=== PATIENT | female | born 1950 | race Caucasian/White ===

== ENCOUNTER → 2017-11-24 | Outpatient (CLI) | payer MEDICARE ==
[~2017-11-24] MED LIST: ASPI81TA94 PO; ATOR40TA24 PO; CAR3.125 PO; CLOP75TA PO; DIPH-543 PO; DOCU-202 PO; ENOX30DI5 SQ; FLUT10SP; FLUT16SP20 NS; FURO-47 PO; HYDR-385 PO; HYDR-4309 PO; LEVO100T95 PO; LEVO75TA73 PO; LISI-353 PO; LISI-374 PO; MELA3TAB31 PO; NIT4 SL; ONDA4TAB PO; PANT40TA65 PO; PARO-46 PO; POTA20TA10 PO; PRAV40TA78 PO; PROM-110 PO; ZOLP-360 PO; vit d
--- NOTE | 2017-11-27 08:47 | RADIOLOGY IMAGING REPORT ---
FACILITY: [facility] PATIENT NAME: LEONOR CARLSON : [id number] MR: [id number] V: [id number] EXAM DATE: ORDERING PHYSICIAN: PARAS DOTSON TECHNOLOGIST: Tamara Lozano EXAMINATION:TWO-DIMENSIONAL ECHOCARDIOGRAPH REASON:CAD 2D Measurements (normal values in centimeters) LV endLV endRV endVent.LV PostAorticLeftPercent DiastolicSystolicDiastolicSeptumWallRootAtriumShortening (3.5-5.7)(0.9-2.6)(0.6-1.1)(0.6-1.1)(2.0-3.7)(1.9-4.0)(25-35%) [id number]% STROKE VOLUME: 64ml ESTIMATED EJECTION FRACTION: 45% PARASTERNAL LONG AXIS: Left ventricular systolic function does appear to be mildly decreased. There is some generalized hypokinesis. The right ventricle appears to contract normally although the TAPSE is measured at the lower range of 1.4 indicating some decrease in right ventricular function. Color examination of the mitral valve revealed a trace to mild amount of mitral insufficiency. Color examination of the aortic valve revealed a trace of aortic insufficiency. Mitral valve appears to open normally. Chamber sizes also appear to be normal. PARASTERNAL SHORT AXIS: Left ventricular systolic function again appears to be decreased. There is generalized hypokinesis but more so along the interventricular septum. There may be some akinesis along the interventricular septum in this view. Color examination revealed a trace of pulmonic insufficiency & a trace of aortic insufficiency. Aortic valve is trileaflet in configuration. APICAL FOUR AND TWO CHAMBER: Left ventricular systolic function again appears to be mildly decreased. Generalized hypokinesis but there also appears to be an area of akinesis at the apex of the left ventricle. There is a mild amount of mitral insufficiency & a trace of aortic insufficiency. Aortic valve area & mitral valve area both measure within normal ranges at 2.5 & 3.4cm2 respectively. The left atrial & right atrial volumes are measured within normal ranges at 25 & 14ml/m2. The tricuspid regurgitation Vmax measured 2.1m/sec. Trace of tricuspid insufficiency is noted. SUBCOSTAL VIEW: No pericardial effusion was noted. No atrioseptal or ventriculoseptal defects were noted. Definity contrast was used. No thrombus was noted in the apex of the left ventricle. The apex is not akinetic but it is hypokinetic. Strain measurements do show decreased Strain along the basilar portion & the apical portions of the anterolateral wall. There is generalized decreased Strain throughout the left ventricle. Doppler examination of the mitral valve in diastole does reveal the A wave > E wave indicating decreased diastolic function. OVERALL IMPRESSION: 1. Decreased left ventricular ejection fraction of approximately 45% with a Grade 1/4 decrease in diastolic function indicating mild decrease in diastolic function. The right ventricle also has a decreased TAPSE indicating some decrease in right ventricular function. There does appear to be generalized hypokinesis more so along the apex of the left ventricle & along the anterolateral wall. Definity contrast was used. No true akinesis was noted. 2. A trileaflet aortic valve with no aortic stenosis & a trace of aortic insufficiency. 3. A trace of pulmonic & tricuspid insufficiency with estimated right ventricular systolic pressures within normal ranges at 21mm Hg. 4. A mild amount of mitral insufficiency with no mitral stenosis. Dictated by: Sharda Link M.D. on 11/24/2017 at 14:33 Transcribed by: KRISTEN on 11/24/2017 at 15:14 Approved by: Sharda Link M.D. on 11/27/2017 at 8:46 [facility]
== END ==
LOC: US 03:21
PROVIDERS: ATTEND Internal Medicine Cardiovascular Disease
DX: I50.30 Unspecified diastolic (congestive) heart failure (principal); Q21.0 Ventricular septal defect; I35.1 Nonrheumatic aortic (valve) insufficiency; I07.1 Rheumatic tricuspid insufficiency; I37.1 Nonrheumatic pulmonary valve insufficiency; I34.0 Nonrheumatic mitral (valve) insufficiency
CPT/HCPCS: 36415; 82040; 82247; 82310; 82374; 82435; 82465; 82565; 82947; 83718; 84075; 84132; 84155; 84295; 84450; 84460; 84478; 84520; 93306

== ENCOUNTER → 2017-12-12 | Outpatient (CLI) | payer MEDICARE | LOC: LAB 07:50 | PROVIDERS: ATTEND Internal Medicine Cardiovascular Disease | DX: I10 Essential (primary) hypertension (principal) | CPT/HCPCS: 36415; 82310; 82374; 82435; 82565; 82947; 84132; 84295; 84520 ==

== ENCOUNTER → 2017-12-12 | Outpatient (CLI) | payer MEDICARE ==
[2017-12-12 08:36] LABS: PLATELET COUNT, AUTOMATED 306 K/uL (150-450)
== END ==
LOC: LAB 07:46
PROVIDERS: ATTEND Nurse Practitioner Family
DX: E03.9 Hypothyroidism, unspecified (principal); I10 Essential (primary) hypertension; D64.9 Anemia, unspecified
CPT/HCPCS: 36415; 83540; 83550; 84443; 85025

== ENCOUNTER 2018-02-23 18:22 | Inpatient (IN) | payer MEDICARE ==
[~2018-02-23] VITALS: Ht 162.6 cm; Wt 68.0 kg
--- NOTE | 2018-02-23 18:47 | ER Report ---
History and Physical Time Seen By MD: 18:47 Hx. of Stated Complaint: BILAT ARM AND LEG WEAKNESS. REPORTS MOSTLY IN LEGS SINCE 0700. HPI/ROS CHIEF COMPLAINT: Leg weakness HISTORY OF PRESENT ILLNESS: 67-year-old female states she is unable to get out of her chair at home. Was brought in by her in by wheelchair. Patient' s complaining of overall general body weakness, especially leg weakness since this morning at 7 AM. She was able to get up normally from bed and she ambulated out into the garage, but upon returning she is able lift her legs up the steps to get back into the house. Patient notes no headache, no fever, no chills, no nausea no vomiting, no chest pain, no shortness of breath. Patient denies back pain. Patient denies visual changes, speech changes or numbness or tingling in any of her extremities. Patient notes some aching in her arms. REVIEW OF SYSTEMS: Respiratory: No cough, no dyspnea. Cardiovascular: No chest pain, no palpitations. Gastrointestinal: No vomiting, no abdominal pain. Musculoskeletal: No back pain. Allergies: Coded Allergies: No Known Drug Allergies (Unverified , 02/23/18) Home Meds Active Scripts Loperamide Hcl (LOPERAMIDE) 2 Mg Capsule, 2 MG PO BID, #60 CAPSULE Prov:ANIYAH OBREGON DO 02/26/18 Carvedilol (CARVEDILOL) 3.125 Mg Tab, 1.5625 MG PO BID, #60 TAB Prov:ANIYAH OBREGON DO 02/26/18 Potassium Chloride (POTASSIUM CHLORIDE) 20 Meq Tab.er.prt, 40 MEQ PO BIDBS, #60 TAB Prov:ANIYAH OBREGON DO 02/26/18 Reported Medications Nitroglycerin (NITROSTAT) 0.4 Mg Subl, 0.4 MG SL Q5MIN 01/07/14 Levothyroxine Sodium (SYNTHROID) 100 Mcg Tablet, 100 MCG PO QDAY 12/30/13 Clopidogrel Bisulfate (CLOPIDOGREL) 75 Mg Tablet, 1 TAB PO QDAY, TAB TAKE ONE TABLET BY MOUTH EVERY DAY 12/30/13 Aspirin (ASPIRIN) 81 Mg Tab.chew, 81 MG PO QDAY, TAB.CHEW TAKE 1 TABLET BY MOUTH EVERY DAY 12/30/13 Paroxetine Hcl (PAROXETINE HCL) 20 Mg Tablet, 20 MG PO DAILY 12/12/13 Lisinopril/Hydrochlorothiazide (LISINOPRIL-HCTZ 20-12.5 MG TAB) 1 Each Tablet, 1 EACH PO BID 12/12/13 Atorvastatin Calcium (LIPITOR) 40 Mg Tablet, 20 MG PO QDAY, TAB TAKE ONE TABLET BY MOUTH ONCE A DAY AT BED TIME 12/12/13 Discontinued Reported Medications Docusate Sodium (DOCUSATE SODIUM) 100 Mg Capsule, 100 MG PO, CAPSULE 01/07/14 Potassium Chloride (Potassium Chloride) 20 Meq Tablet.er, 40 MEQ PO DAILY 12/30/13 Furosemide (FUROSEMIDE) 40 Mg Tablet, 1 TAB PO DAILY TAKE ONE TABLET BY MOUTH EVERY 6 TO 8 HOURS 12/30/13 Carvedilol (CARVEDILOL) 3.125 Mg Tab, 3.125 MG PO BID, TAB TAKE 1 TABLET BY MOUTH TWICE A DAY 12/30/13 Hydrocodone Bit/Acetaminophen (HYDROCODON-ACETAMINOPHEN 5-325) 1 Each Tablet, 1 EACH PO Q4H 01/07/14 [vit d] No Conflict Check 01/07/14 Discontinued Scripts Hydrocodone Bit/Acetaminophen (NORCO 5-325 TABLET) 1 Each Tablet, 1 EACH PO 2- 3XD, #20 TAB Prov:MARCELLA LASSITER MD 09/27/16 Past Medical/Surgical History Coronary artery disease, hypothyroidism, hypertension, hyperlipidemia Reviewed Nurses Notes: Yes Old Medical Records Reviewed: Yes Hx Smoking: No Smoking Status: Former Smoker Exposure to Second Hand Smoke?: No Hx Substance Use Disorder: No Hx Alcohol Use: No Constitutional Vital Sign - Last 24 Hours 02/23/18 02/23/18 02/23/18 02/23/18 18:30 19:29 19:37 19:52 Temp 98.0 Pulse 67 75 69 Resp 18 B/P (MAP) 102/75 120/86 (97) Pulse Ox 95 95 94 O2 Delivery Room Air 02/23/18 02/23/18 02/23/18 02/23/18 20:07 20:10 20:25 20:40 Pulse 74 66 68 66 Pulse Ox 95 94 93 94 02/23/18 02/23/18 02/23/18 02/23/18 20:55 21:25 21:40 21:55 Pulse 66 67 76 67 Resp 13 38 7 Pulse Ox 96 96 96 94 02/23/18 02/23/18 02/23/18 02/23/18 22:00 22:15 22:30 22:45 Pulse 66 63 62 70 Resp 15 19 19 15 Pulse Ox 94 94 94 95 02/23/18 02/23/18 02/23/18 02/24/18 23:00 23:15 23:50 00:05 Pulse 69 72 67 Resp 10 19 Pulse Ox 96 91 97 94 02/24/18 00:20 Pulse 57 Pulse Ox 96 Physical Exam General Appearance: The patient is alert, has no immediate need for airway protection and no current signs of toxicity. Vital signs stable, afebrile, pulse ox normal, alert and oriented 3 HEENT: Pupils equal and round no injection. TMs normal, oropharynx without redness or exudate, mucous membranes are moist Respiratory: Chest is non tender, lungs are clear to auscultation. No wheezing or rails Cardiac: regular rate and rhythm Gastrointestinal: Abdomen is soft and non tender, no masses, bowel sounds normal. Musculoskeletal: Neck: Neck is supple and non tender. No JVD, no lymphadenopathy Extremities have full range of motion and are non tender. No edema Skin: No rashes or lesions. Neuro: Alert and oriented 3, cranial nerves II through XII intact motor 5/5 all groups, normal. Patient unable to lift her legs off the bed., Sensation intact 4 to light touch DIFFERENTIAL DIAGNOSIS: After history and physical exam differential diagnosis was considered for weakness including but not limited to electrolyte abnormality , depression, anxiety, CVA, spinal cord abnormality, and infectious causes. Medical Decision Making Data Points Result Diagram: 02/26/18 0525 02/26/18 0525 Laboratory Hematology Test 02/23/18 20:25 02/23/18 21:35 02/23/18 23:38 Prothrombin Time 12.9 seconds (12.0-14.4) Prothromb Time International Ratio 0.97 Activated Partial Thromboplast Time 32 seconds (23-35) B-Type Natriuretic Peptide 174 pg/ml (0-100) Urine Color Straw Urine Clarity Clear Urine pH 6.0 pH (4.8-9.5) Urine Specific [place] 1.005 Urine Protein Negative mg/dL (NEGATIVE) Urine Glucose (UA) Negative mg/dL (NEGATIVE) Urine Ketones Negative mg/dL (NEGATIVE) Urine Blood Negative (NEGATIVE) Urine Nitrite Negative (NEGATIVE) Urine Bilirubin Negative (NEGATIVE) Urine Urobilinogen Negative mg/dL (0.2-1.9) Urine Leukocyte Esterase Negative (NEGATIVE) Urine RBC 1 /HPF (0-2/HPF) Urine WBC 2 /HPF (0-5/HPF) Urine Squamous Epithelial Cells None /LPF (NONE-FEW) Urine Amorphous Crystals Few /HPF Urine Bacteria Negative /HPF (NONE-FEW) Urine Mucus None /HPF (NONE-FEW) Troponin I 0.054 ng/ml Chemistry Test 02/23/18 20:25 02/23/18 21:35 02/23/18 23:38 Prothrombin Time 12.9 seconds (12.0-14.4) Prothromb Time International Ratio 0.97 Activated Partial Thromboplast Time 32 seconds (23-35) B-Type Natriuretic Peptide 174 pg/ml (0-100) Urine Color Straw Urine Clarity Clear Urine pH 6.0 pH (4.8-9.5) Urine Specific [place] 1.005 Urine Protein Negative mg/dL (NEGATIVE) Urine Glucose (UA) Negative mg/dL (NEGATIVE) Urine Ketones Negative mg/dL (NEGATIVE) Urine Blood Negative (NEGATIVE) Urine Nitrite Negative (NEGATIVE) Urine Bilirubin Negative (NEGATIVE) Urine Urobilinogen Negative mg/dL (0.2-1.9) Urine Leukocyte Esterase Negative (NEGATIVE) Urine RBC 1 /HPF (0-2/HPF) Urine WBC 2 /HPF (0-5/HPF) Urine Squamous Epithelial Cells None /LPF (NONE-FEW) Urine Amorphous Crystals Few /HPF Urine Bacteria Negative /HPF (NONE-FEW) Urine Mucus None /HPF (NONE-FEW) Troponin I 0.054 ng/ml Coagulation Test 02/23/18 20:25 Prothrombin Time 12.9 seconds Prothromb Time International Ratio 0.97 Activated Partial Thromboplast Time 32 seconds Urinalysis Test 02/23/18 21:35 Urine Color Straw Urine Clarity Clear Urine pH 6.0 pH (4.8-9.5) Urine Specific [place] 1.005 Urine Protein Negative mg/dL (NEGATIVE) Urine Glucose (UA) Negative mg/dL (NEGATIVE) Urine Ketones Negative mg/dL (NEGATIVE) Urine Blood Negative (NEGATIVE) Urine Nitrite Negative (NEGATIVE) Urine Bilirubin Negative (NEGATIVE) Urine Urobilinogen Negative mg/dL (0.2-1.9) Urine Leukocyte Esterase Negative (NEGATIVE) Urine RBC 1 /HPF (0-2/HPF) Urine WBC 2 /HPF (0-5/HPF) Urine Squamous Epithelial Cells None /LPF (NONE-FEW) Urine Amorphous Crystals Few /HPF Urine Bacteria Negative /HPF (NONE-FEW) Urine Mucus None /HPF (NONE-FEW) EKG/Imaging EKG Interpretation 12 lead EK Rhythm: normal sinus rhythm [place]: Left axis deviation QRS: LVH with repolarization abnormality,? Old inferior ST depression ST segments: normal, comparison to previous EKG dated 01/18/17, no significant morphologic change ED Course/Re-evaluation Clinical Indication for ER IV: IV Access ED Course Patient was admitted to an examination room. H&P was done. The differential diagnoses was considered. On clinical examination. Patient has generalized weakness. She has some arm and leg aching. Diagnostic evaluation shows a normal EKG. Diagnostic studies show a low potassium of 1.7. Some mild dehydration. 02/24/2018 12:29:25 am Case was discussed Dr. Babatunde Waddell who accepts the patient for admission for replacement of her potassium Decision to Disposition Date: Feb 23, 2018 Decision to Disposition Time: 20:57 Depart Departure Latest Vital Signs Vital Signs Date Time Temp Pulse Resp B/P (MAP) Pulse Ox O2 Delivery O2 Flow Rate FiO2 02/24/18 00:20 57 96 02/23/18 23:15 19 02/23/18 19:29 120/86 (97) 02/23/18 18:30 98.0 Room Air Impression: Primary Impression: Hypokalemia Additional Impression: Leg weakness, bilateral Condition: Improved Disposition: Admitted from ER New Scripts Loperamide Hcl (LOPERAMIDE) 2 Mg Capsule 2 MG PO BID, #60 CAPSULE Prov: ANIYAH OBREGON DO 02/26/18 Carvedilol (CARVEDILOL) 3.125 Mg Tab 1.5625 MG PO BID, #60 TAB Prov: ANIYAH OBREGON DO 02/26/18 Potassium Chloride (POTASSIUM CHLORIDE) 20 Meq Tab.er.prt 40 MEQ PO BIDBS, #60 TAB Prov: ANIYAH OBREGON DO 02/26/18 Problem Qualifiers DONNELL HOOVER DO Feb 23, 2018 18:47
[2018-02-23 20:37] LABS: PLATELET COUNT, AUTOMATED 345 K/uL (150-450)
--- NOTE | 2018-02-23 20:44 | EKG ---
FACILITY: [facility] PATIENT NAME: LEONOR CARLSON : [id number] MR: [id number] V: [id number] EXAM DATE: ORDERING PHYSICIAN: DONNELL HOOVER TECHNOLOGIST: BALDEMAR Test Reason : BILAT ARM PAIN Blood Pressure : / mmHG Vent. Rate : 069 BPM Atrial Rate : 069 BPM P-R Int : 146 ms QRS Dur : 104 ms QT Int : 394 ms P-R-T Axes : 035 -51 135 degrees QTc Int : 422 ms Sinus rhythm Left axis deviation Left ventricular hypertrophy with repolarization abnormality Inferior infarct , age undetermined ST depression inferolateral leads with diffuse T wave flattening Abnormal ECG Confirmed by SURINDER BILL ([id number]) on 02/24/2018 5:47:45 AM Referred By: Confirmed By:SURINDER BILL
[2018-02-23 20:52] LABS: INR 0.97
--- NOTE | 2018-02-23 21:58 | RADIOLOGY IMAGING REPORT ---
FACILITY: [facility] PATIENT NAME: Marcia Byrne : 1950 MR: [id number] V: [id number] EXAM DATE: ORDERING PHYSICIAN: DONNELL HOOVER TECHNOLOGIST: Location: [facility] Patient: Marcia Byrne : 1950 Visit/Account:[id number] Date of Sevice: 02/23/2018 TWO VIEW CHEST 02/23/2018 8:53 PM. INDICATION: weakness COMPARISON: 01/07/2014. FINDINGS: Lungs are well-expanded. The lungs are clear. No pneumothorax or pleural effusion. Pulmo nary vasculature is unremarkable. Heart size is normal. Coronary artery stents. Aortic calcificati ons. Surgical clips over the right upper quadrant of the abdomen. IMPRESSION: No acute cardiopulmonary abnormality. Report Dictated By: Christos Snowden MD at 02/23/2018 9:53 PM Report E-Signed By: Christos Snowden MD at 02/23/2018 9:54 PM WSN:[id number]
[2018-02-23] MEDS ORDERED: POTASSIUM CHL 20 MEQ TABCR PO ONE (22:00)
[2018-02-24] MEDS ORDERED: KCL 2 MEQ/ML 20 MEQ/10 ML VIAL 20 MEQ in NS(*) 0.9% 1000 ML BAG 1,000 ML IV PRN (01:29)
[2018-02-24] MEDS ORDERED: MAGNESIUM SUL* 4 GM/100 ML BAG 100 ML IVPB ONE ×2 (01:30→03:30)
[2018-02-24] MEDS ORDERED: NS 0.9% 250 ML VISIV BAG IV PRN (01:30)
[2018-02-24] MEDS ORDERED: INFLUENZA VIRUS VAC 0.5 ML SYR IM ONLY ONE (01:30)
[2018-02-24] MEDS ORDERED: KCL (*) 20 MEQ/100 ML PREMIX 100 ML IV ONE ×3 (01:30→05:15)
[2018-02-24] MEDS ORDERED: LOPERAMIDE HCL 2 MG CAP PO ONE (01:35)
--- NOTE | 2018-02-24 01:52 | History & Physical ---
History of Present Illness Chief Complaint Weak History of Present Illness 67yo female with PMHx significant for CAD s/p PTCA with stenting, previous UT, embolic shower with ischemic gut, s/p partial colectomy, chronic diarrhea, pericarditis with tamponade, s/p pericardial window. She reports onset of aches in her shoulder and hip girdles starting late yesterday. This was associated with significant weakness in her upper and lower extremities to the point she was unable to ambulate or do much at all for herself. She did not have N/V/CP/ SOB associated with it. She has had her chronic diarrhea, which is unchanged. No fevers or chills. No urinary complaints. She was evaluated in the ER and found to be hypokalemic (1.7), hypomagnesemic (1.1), and hypocalcemic (7.7). She was recommended for admission. History Problems: (1) CAD (coronary artery disease) Status: Chronic (2) History of UT (myocardial infarction) Status: Chronic (3) S/P coronary artery stent placement Status: Chronic (4) Pericarditis Status: Resolved (5) Cardiac tamponade due to viral pericarditis Status: Resolved (6) Ischemic colon Status: Resolved (7) S/P partial colectomy Status: Chronic (8) Chronic diarrhea Status: Chronic (9) Hypothyroidism Status: Chronic Home Meds Reported Medications Nitroglycerin (NITROSTAT) 0.4 Mg Subl, 0.4 MG SL Q5MIN 01/07/14 Docusate Sodium (DOCUSATE SODIUM) 100 Mg Capsule, 100 MG PO, CAPSULE 01/07/14 Potassium Chloride (Potassium Chloride) 20 Meq Tablet.er, 40 MEQ PO DAILY 12/30/13 Levothyroxine Sodium (SYNTHROID) 100 Mcg Tablet, 100 MCG PO QDAY 12/30/13 Furosemide (FUROSEMIDE) 40 Mg Tablet, 1 TAB PO DAILY TAKE ONE TABLET BY MOUTH EVERY 6 TO 8 HOURS 12/30/13 Clopidogrel Bisulfate (CLOPIDOGREL) 75 Mg Tablet, 1 TAB PO QDAY, TAB TAKE ONE TABLET BY MOUTH EVERY DAY 12/30/13 Carvedilol (CARVEDILOL) 3.125 Mg Tab, 3.125 MG PO BID, TAB TAKE 1 TABLET BY MOUTH TWICE A DAY 12/30/13 Aspirin (ASPIRIN) 81 Mg Tab.chew, 81 MG PO QDAY, TAB.CHEW TAKE 1 TABLET BY MOUTH EVERY DAY 12/30/13 Paroxetine Hcl (PAROXETINE HCL) 20 Mg Tablet, 20 MG PO DAILY 12/12/13 Lisinopril/Hydrochlorothiazide (LISINOPRIL-HCTZ 20-12.5 MG TAB) 1 Each Tablet, 1 EACH PO BID 12/12/13 Levothyroxine Sodium (LEVOTHYROXINE SODIUM) 75 Mcg Tablet, 75 MCG PO QDAY 12/12/13 Atorvastatin Calcium (LIPITOR) 40 Mg Tablet, 20 MG PO QDAY, TAB TAKE ONE TABLET BY MOUTH ONCE A DAY AT BED TIME 12/12/13 Discontinued Reported Medications Hydrocodone Bit/Acetaminophen (HYDROCODON-ACETAMINOPHEN 5-325) 1 Each Tablet, 1 EACH PO Q4H 01/07/14 [vit d] No Conflict Check 01/07/14 Discontinued Scripts Hydrocodone Bit/Acetaminophen (NORCO 5-325 TABLET) 1 Each Tablet, 1 EACH PO 2- 3XD, #20 TAB Prov:MARCELLA ALSSITER MD 09/27/16 Allergies: Coded Allergies: No Known Drug Allergies (Unverified , 02/23/18) Other Social/Family Hx Father in an accident at an early age. Mother lived into her 80s. Hx Smoking: No Smoking Status: Former Smoker Exposure to Second Hand Smoke?: No Hx Alcohol Use: No Review of Systems Constitutional: No Fever, No Chills, No Night Sweats Neurological: Weakness, No Syncope Eyes: Other (recent eye infection), No Vision Change, No Loss of Vision ENT: No Hearing Loss Cardiovascular: No Chest Pain, No Palpitations Respiratory: No Shortness of Breath, No Cough Gastrointestinal: No Nausea, No Vomiting, Diarrhea, No Hematochezia, No Melena , No Abdominal Pain Genitourinary: No Dysuria Musculoskeletal: Pain, Impaired Mobility Psychiatric: Depression Exam Vital Signs Vital Signs Date Time Temp Pulse Resp B/P (MAP) Pulse Ox O2 Delivery O2 Flow Rate FiO2 02/24/18 00:35 72 96 02/23/18 23:15 19 02/23/18 19:29 120/86 (97) 02/23/18 18:30 98.0 Room Air General Appearance: Alert, Awake Neuro: Other (generalized weakness in all groups) Eyes: PERRLA ENT: Oropharynx Clear Neck: No Masses Cardiovascular: Regular Rate and Rhythm, No JVD Respiratory: Clear to Auscultation Chest: No Tenderness GI: Abd Soft and Non-Tender, Other (healed epigastric and laparotomy scars) : No CVA Tenderness Lymph: No Adenopathy Musculoskeletal: Other (no muscle belly tenderness elicited) Extremities: Warm, Perfused Integumentary: Skin Intact without Lesion / Mass Psych: Alert & Oriented X3 Medical Decision Making Data Points Result Diagram: 02/23/18202402/23/182024 Item Value Date Time Troponin I 0.054 ng/ml 02/23/182337 Troponin I 0.058 ng/ml 02/23/182024 B-Type Natriuretic Peptide 174 pg/ml H 02/23/182024 Albumin 3.9 g/dl 02/23/182024 Total Protein 6.8 g/dl 02/23/182024 Alkaline Phosphatase 106 U/L 02/23/182024 Alanine Aminotransferase (ALT/SGPT) 31 U/L 02/23/182024 Aspartate Amino Transf (AST/SGOT) 28 U/L 02/23/182024 Total Bilirubin 0.5 mg/dl 02/23/182024 Calcium Level 7.7 mg/dl L 02/23/182024 Magnesium Level 1.1 mg/dl L 02/23/18 0000 Urine Mucus None /HPF 02/23/182134 Urine Bacteria Negative /HPF 02/23/182134 Urine Amorphous Crystals Few /HPF 02/23/182134 Urine Squamous Epithelial Cells None /LPF 02/23/182134 Urine WBC 2 /HPF 02/23/182134 Urine RBC 1 /HPF 02/23/182134 Urine Leukocyte Esterase Negative 02/23/182134 Urine Urobilinogen Negative mg/dL 02/23/182134 Urine Bilirubin Negative 02/23/182134 Urine Nitrite Negative 02/23/182134 Urine Blood Negative 02/23/182134 Urine Ketones Negative mg/dL 02/23/182134 Urine Glucose (UA) Negative mg/dL 02/23/182134 Urine Protein Negative mg/dL 02/23/182134 Urine Specific [place] 1.005 02/23/182134 Urine pH 6.0 pH 02/23/182134 Urine Clarity Clear 02/23/182134 Urine Color Straw 02/23/182134 Activated Partial Thromboplast Time 32 seconds 02/23/182024 Prothromb Time International Ratio 0.97 02/23/182024 Prothrombin Time 12.9 seconds 02/23/182024 EKG / Imaging Imaging PATIENT NAME: Marcia Byrne : 1950 MR: [id number] V: [id number] EXAM DATE: ORDERING PHYSICIAN: DONNELL HOOVER TECHNOLOGIST: Location: [facility] Patient: Marcia Byrne : 1950 Visit/Account:[id number] Date of Sevice: 02/23/2018 TWO VIEW CHEST 02/23/2018 8:53 PM. INDICATION: weakness COMPARISON: 01/07/2014. FINDINGS: Lungs are well-expanded. The lungs are clear. No pneumothorax or pleural effusion. Pulmonary vasculature is unremarkable. Heart size is normal. Coronary artery stents. Aortic calcifications. Surgical clips over the right upper quadrant of the abdomen. IMPRESSION: No acute cardiopulmonary abnormality. Report Dictated By: Christos Snowden MD at 02/23/2018 9:53 PM Report E-Signed By: Christos Snowden MD at 02/23/2018 9:54 PM WSN:[id number] Assessment and Plan Problems: (1) Weakness Status: Acute Assessment & Plan: Fairly acute onset. I suspect it is probably related to her significant electrolyte abnormalities, which are most likely due to her chronic diarrhea. Will replace her K+, Mg++, Ca++. Watch labs closely. Further evaluation/treatment as needed. (2) Hypokalemia Status: Acute Assessment & Plan: Will watch on telemetry. Replace with IV supplements. Watch labs closely. (3) Hypomagnesemia Status: Acute Assessment & Plan: Replace with IV supplements. Watch labs. (4) CAD (coronary artery disease) Status: Chronic Assessment & Plan: Will continue her aspirin, Plavix, atorvastatin, low dose carvedilol. (5) Chronic diarrhea Status: Chronic Assessment & Plan: Due to previous colectomy. She reports upwards of 15-20 BMs daily. This has most likely lead to her electrolyte abnormalities. She has been advised to try Imodium in the past, but "I already take too many medicines". Will start her on a scheduled regimen of Imodium. (6) Hypothyroidism Status: Chronic Assessment & Plan: Continue replacement with L-thyroxine 100mcg daily. Check TSH. Copies to: [facility] Venous Thromboembolism Antithrombotics Is Pt On Any Antithrombotics?: Yes Exam Sepsis Risk: No Definite Risk SURINDER BILL MD Feb 24, 2018 01:52
[2018-02-24] MEDS ORDERED: KCL/NS* 20 MEQ/1000 ML PREMIX 1,000 ML IV ONE (02:53)
[2018-02-24 03:30] VITALS: BP 119/91
[2018-02-24] MEDS ORDERED: CALCIUM GLUC(*)10% 100MG/ML VL 1,000 MG in NS(*) 0.9% 100 ML BAG 100 ML IVPB ONE (06:00)
[2018-02-24] MEDS: NS(*) 0.9% 1000 ML BAG 1,000 ML IV PRN ×2 (06:12→20:32)
[2018-02-24] MEDS: LEVOTHYROXINE SOD 0.1 MG TAB PO SCH (06:14)
[2018-02-24 07:59] VITALS: BP 127/71
[2018-02-24] MEDS ORDERED: NS 0.9% 250 ML BAG IV PRN (08:15)
[2018-02-24] MEDS ORDERED: CARVEDILOL 3.125 MG TAB PO SCH (09:00)
[2018-02-24] MEDS ORDERED: ENOXAPARIN 40 MG/0.4ML SYR SC SCH (09:00)
[2018-02-24] MEDS ORDERED: ASPIRIN 81 MG CHEW PO SCH (09:00)
[2018-02-24] MEDS ORDERED: POTASSIUM CHL 20 MEQ TABCR PO ONE ×2 (09:45→21:00)
--- NOTE | 2018-02-24 09:47 | Hospitalist Progress Note ---
Subjective Progress Notes Subjective The patient states she is having some discomfort in her R arm due to infusing potassium solution. Physical Exam Vital Signs Date Time Temp Pulse Resp B/P (MAP) Pulse Ox O2 Delivery O2 Flow Rate FiO2 02/24/18 07:59 97.9 83 22 127/71 (89) 94 Nasal Cannula 0.5 Intake and Output 02/25/18 07:00 Intake Total 0 ml Balance 0 ml Intake Oral 0 ml # Voids 1 General Appearance: Alert, Awake, No Acute Distress, Afebrile Neuro: Other (Generalized muscle weakness.) Eyes: PERRLA Cardiovascular: Regular Rate and Rhythm Respiratory: Clear to Auscultation GI: Soft and Non-Tender Extremities: Warm, Perfused Psych: Alert & Oriented X3, Appropriate Mood & Affect Result Diagram: 02/23/18202402/23/182024 Assessment and Plan Problems: (1) Weakness Status: Acute Assessment & Plan: Fairly acute onset. I suspect it is probably related to her significant electrolyte abnormalities, which are most likely due to her chronic diarrhea. Will replace her K+, Mg++, Ca++. Watch labs closely. Further evaluation/treatment as needed. (2) Hypokalemia Status: Acute Assessment & Plan: Will watch on telemetry. Replace with IV supplements. Watch labs closely. (3) Hypomagnesemia Status: Acute Assessment & Plan: Replace with IV supplements. Watch labs. (4) CAD (coronary artery disease) Status: Chronic Assessment & Plan: Will continue her aspirin, Plavix, atorvastatin, low dose carvedilol. (5) Chronic diarrhea Status: Chronic Assessment & Plan: Due to previous colectomy. She reports upwards of 15-20 BMs daily. This has most likely lead to her electrolyte abnormalities. She has been advised to try Imodium in the past, but "I already take too many medicines". Will start her on a scheduled regimen of Imodium and monitor. (6) Hypothyroidism Status: Chronic Assessment & Plan: Continue replacement with L-thyroxine 100mcg daily. Check TSH. Time Spent on Plan of Care: < 30 min Exam Sepsis Risk: No Definite Risk BHUMIKA BILL MD Feb 24, 2018 09:47
[2018-02-24] MEDS: ASPIRIN 81 MG CHEW CHEW SCH (09:56)
[2018-02-24] MEDS: CARVEDILOL 3.125 MG TAB PO SCH ×2 (09:57→20:33)
[2018-02-24] MEDS: CLOPIDOGREL BISULFATE 75MG TAB PO SCH (09:57)
[2018-02-24] MEDS: LOPERAMIDE HCL 2 MG CAP PO SCH ×3 (09:57→20:32)
[2018-02-24] MEDS: PARoxetine HCL 20 MG TAB PO SCH (09:57)
[2018-02-24] MEDS: ATORVASTATIN 40 MG TAB PO SCH (09:57)
[2018-02-24] MEDS: PANTOPRAZOLE SOD 40 MG TABEC PO SCH (09:57)
[2018-02-24] MEDS: ENOXAPARIN 30 MG/0.3 ML SYR SC SCH (09:58)
[2018-02-24 10:43] VITALS: BP 135/79
[2018-02-24 11:06] VITALS: Ht 162.6 cm; Wt 68.0 kg
[2018-02-24] MEDS ORDERED: KCL (*) 20 MEQ/100 ML PREMIX 100 ML ONE (13:51)
[2018-02-24 13:55] VITALS: BP 131/66
[2018-02-24 19:19] VITALS: BP 125/65
[2018-02-24 19:49] LABS: PLATELET COUNT, AUTOMATED 313 K/uL (150-450)
[2018-02-24] MEDS: POTASSIUM CHL 20 MEQ TABCR PO SCH (20:02)
[2018-02-24] MEDS: prednisoLONE ACE 1% OP 5ML BTL OD SCH (20:34)
[2018-02-24 23:40] VITALS: BP 107/65
[2018-02-25 03:43] VITALS: BP 136/69
[2018-02-25] MEDS: LEVOTHYROXINE SOD 0.1 MG TAB PO SCH (06:06)
[2018-02-25 07:09] VITALS: BP 127/65
[2018-02-25] MEDS: NS(*) 0.9% 1000 ML BAG 1,000 ML IV PRN (08:45)
[2018-02-25] MEDS: PANTOPRAZOLE SOD 40 MG TABEC PO SCH (08:46)
[2018-02-25] MEDS: CLOPIDOGREL BISULFATE 75MG TAB PO SCH (08:46)
[2018-02-25] MEDS: POTASSIUM CHL 20 MEQ TABCR PO SCH ×2 (08:46→17:57)
[2018-02-25] MEDS: ATORVASTATIN 40 MG TAB PO SCH (08:46)
[2018-02-25] MEDS: CARVEDILOL 3.125 MG TAB PO SCH ×2 (08:47→20:30)
[2018-02-25] MEDS: LOPERAMIDE HCL 2 MG CAP PO SCH ×2 (08:47→20:31)
[2018-02-25] MEDS: PARoxetine HCL 20 MG TAB PO SCH (08:47)
[2018-02-25] MEDS: ASPIRIN 81 MG CHEW CHEW SCH (08:47)
[2018-02-25] MEDS: ENOXAPARIN 30 MG/0.3 ML SYR SC SCH (08:47)
[2018-02-25] MEDS: prednisoLONE ACE 1% OP 5ML BTL OD SCH ×4 (08:48→20:29)
--- NOTE | 2018-02-25 10:12 | Hospitalist Progress Note ---
Subjective Progress Notes Subjective She reports feeling "100% better". Physical Exam Vital Signs Date Time Temp Pulse Resp B/P (MAP) Pulse Ox O2 Delivery O2 Flow Rate FiO2 02/25/18 07:09 97.6 76 11 127/65 (85) 98 Nasal Cannula 2.0 Intake and Output 02/26/18 07:00 Intake Total 920 ml Balance 920 ml IV Total 920 ml General Appearance: Alert, Awake Cardiovascular: Regular Rate and Rhythm GI: Soft and Non-Tender Extremities: Warm, Perfused Psych: Alert & Oriented X3 Result Diagram: 02/24/18193902/24/181826 Assessment and Plan Problems: (1) Weakness Status: Acute Assessment & Plan: Fairly acute onset. Most likely related to her significant electrolyte abnormalities, which are most likely due to her chronic diarrhea. Will resume her oral K+, Mg++, Ca++. Watch labs closely. (2) Hypokalemia Status: Acute Assessment & Plan: Improved. She weston snot tolerated IV formulations. Will watch on telemetry. Replace with oral supplements now. Watch labs closely. (3) Hypomagnesemia Status: Acute Assessment & Plan: Replace with IV supplements. Watch labs. (4) CAD (coronary artery disease) Status: Chronic Assessment & Plan: Will continue her aspirin, Plavix, atorvastatin, low dose carvedilol. (5) Chronic diarrhea Status: Chronic Assessment & Plan: Due to previous colectomy. She reports upwards of 15-20 BMs daily. This has most likely lead to her electrolyte abnormalities. She has been advised to try Imodium in the past, but "I already take too many medicines". She has had only one BM since starting the Imodium. Will continue on BID for now. (6) Hypothyroidism Status: Chronic Assessment & Plan: Continue replacement with L-thyroxine 100mcg daily. TSH pending. Exam Sepsis Risk: No Definite Risk SURINDER BILL MD Feb 25, 2018 10:12
[2018-02-25] MEDS: MAGNESIUM OXIDE 400 MG TAB PO SCH ×2 (11:40→20:29)
[2018-02-25 11:42] VITALS: BP 105/60
[2018-02-25 18:45] VITALS: BP 118/48
[2018-02-25 22:26] VITALS: BP 128/59
[2018-02-26] MEDS: NS(*) 0.9% 1000 ML BAG 1,000 ML IV PRN (00:20)
[2018-02-26 02:28] VITALS: BP 147/68
[2018-02-26 05:40] LABS: PLATELET COUNT, AUTOMATED 278 K/uL (150-450)
[2018-02-26] MEDS: LEVOTHYROXINE SOD 0.1 MG TAB PO SCH (05:42)
[2018-02-26 07:33] VITALS: BP 108/81
[2018-02-26] MEDS: ASPIRIN 81 MG CHEW CHEW SCH (10:05)
[2018-02-26] MEDS: PARoxetine HCL 20 MG TAB PO SCH (10:05)
[2018-02-26] MEDS: ENOXAPARIN 30 MG/0.3 ML SYR SC SCH (10:05)
[2018-02-26] MEDS: PANTOPRAZOLE SOD 40 MG TABEC PO SCH (10:05)
[2018-02-26] MEDS: POTASSIUM CHL 20 MEQ TABCR PO SCH (10:05)
[2018-02-26] MEDS: CLOPIDOGREL BISULFATE 75MG TAB PO SCH (10:06)
[2018-02-26] MEDS: CARVEDILOL 3.125 MG TAB PO SCH (10:06)
[2018-02-26] MEDS: ATORVASTATIN 40 MG TAB PO SCH (10:06)
[2018-02-26] MEDS: LOPERAMIDE HCL 2 MG CAP PO SCH (10:06)
[2018-02-26] MEDS: prednisoLONE ACE 1% OP 5ML BTL OD SCH (10:11)
[2018-02-26] MEDS ORDERED: CAR3.125 PO (10:14)
[2018-02-26] MEDS ORDERED: LOPE2CAP88 PO (10:14)
[2018-02-26] MEDS ORDERED: POTA20TA94 PO (10:14)
--- NOTE | 2018-02-26 10:22 | Hospitalist Depart ---
Discharge Summary Reason for Hosp/Final Diag: (1) Weakness Status: Acute Hospital Course & Plan: This was most likely related to her significant electrolyte abnormalities. She has improved after supplementation. (2) Hypokalemia Status: Acute Hospital Course & Plan: Improving with supplementation, but remains low. She has been unable to tolerate IV potassium. She is going to continue oral supplements and follow up with primary care for repeat labs tomorrow. (3) Hypomagnesemia Status: Acute Hospital Course & Plan: Resolved with supplements. (4) CAD (coronary artery disease) Status: Chronic Hospital Course & Plan: She is on chronic treatment with aspirin, Plavix, carvedilol, and atorvastatin. (5) Chronic diarrhea Status: Chronic Hospital Course & Plan: She has had chronic diarrhea secondary to a prior colectomy. She will resume Imodium to help prevent this. (6) Hypothyroidism Status: Chronic Hospital Course & Plan: She is on chronic treatment with Synthroid. Departure Latest Vital Signs Vital Signs 02/26/18 07:51 Pulse Ox 100 O2 Delivery Nasal Cannula O2 Flow Rate 2.0 Weight (Pounds): 150 Result Diagram: 02/26/1852402/26/18524 Condition: Improved Discharge: Home, Self Care Discharge Instructions Home Meds Active Scripts Loperamide Hcl (LOPERAMIDE) 2 Mg Capsule, 2 MG PO BID, #60 CAPSULE Prov:ANIYAH OBREGON DO 02/26/18 Carvedilol (CARVEDILOL) 3.125 Mg Tab, 1.5625 MG PO BID, #60 TAB Prov:ANIYAH OBREGON DO 02/26/18 Potassium Chloride (POTASSIUM CHLORIDE) 20 Meq Tab.er.prt, 40 MEQ PO BIDBS, #60 TAB Prov:ANIYAH OBREGON DO 02/26/18 Reported Medications Nitroglycerin (NITROSTAT) 0.4 Mg Subl, 0.4 MG SL Q5MIN 01/07/14 Levothyroxine Sodium (SYNTHROID) 100 Mcg Tablet, 100 MCG PO QDAY 12/30/13 Clopidogrel Bisulfate (CLOPIDOGREL) 75 Mg Tablet, 1 TAB PO QDAY, TAB TAKE ONE TABLET BY MOUTH EVERY DAY 12/30/13 Aspirin (ASPIRIN) 81 Mg Tab.chew, 81 MG PO QDAY, TAB.CHEW TAKE 1 TABLET BY MOUTH EVERY DAY 12/30/13 Paroxetine Hcl (PAROXETINE HCL) 20 Mg Tablet, 20 MG PO DAILY 12/12/13 Lisinopril/Hydrochlorothiazide (LISINOPRIL-HCTZ 20-12.5 MG TAB) 1 Each Tablet, 1 EACH PO BID 12/12/13 Atorvastatin Calcium (LIPITOR) 40 Mg Tablet, 20 MG PO QDAY, TAB TAKE ONE TABLET BY MOUTH ONCE A DAY AT BED TIME 12/12/13 Discontinued Reported Medications Docusate Sodium (DOCUSATE SODIUM) 100 Mg Capsule, 100 MG PO, CAPSULE 01/07/14 Potassium Chloride (Potassium Chloride) 20 Meq Tablet.er, 40 MEQ PO DAILY 12/30/13 Furosemide (FUROSEMIDE) 40 Mg Tablet, 1 TAB PO DAILY TAKE ONE TABLET BY MOUTH EVERY 6 TO 8 HOURS 12/30/13 Carvedilol (CARVEDILOL) 3.125 Mg Tab, 3.125 MG PO BID, TAB TAKE 1 TABLET BY MOUTH TWICE A DAY 12/30/13 Hydrocodone Bit/Acetaminophen (HYDROCODON-ACETAMINOPHEN 5-325) 1 Each Tablet, 1 EACH PO Q4H 01/07/14 [vit d] No Conflict Check 01/07/14 Discontinued Scripts Hydrocodone Bit/Acetaminophen (NORCO 5-325 TABLET) 1 Each Tablet, 1 EACH PO 2- 3XD, #20 TAB Prov:MARCELLA LASSITER MD 09/27/16 Diet: Regular Activity: As Tolerated Copies to: NONA VELASCO Venous Thromboembolism Antithrombotics Is Pt On Any Antithrombotics?: Yes ANIYAH OBREGON DO Feb 26, 2018 10:22
== END 2018-02-26 11:05 | disposition home or self-care (01) | DRG 641 ==
LOC: ER 18:50 → MED 02-24 00:30
PROVIDERS: ADMIT Internal Medicine; ATTEND Internal Medicine
DX: E83.51 Hypocalcemia (principal); E87.6 Hypokalemia; E83.42 Hypomagnesemia; R53.1 Weakness; I25.10 Atherosclerotic heart disease of native coronary artery without angina pectoris; Z79.82 Long term (current) use of aspirin; R19.7 Diarrhea, unspecified; E03.9 Hypothyroidism, unspecified; I10 Essential (primary) hypertension; Z87.891 Personal history of nicotine dependence; E87.5 Hyperkalemia; I25.2 Old myocardial infarction; Z93.3 Colostomy status; Z95.5 Presence of coronary angioplasty implant and graft; F32.9 Major depressive disorder, single episode, unspecified
CPT/HCPCS: 36415; 71046; 81001; 82040; 82247; 82310; 82374; 82435; 82565; 82947; 83735; 83880; 84075; 84132; 84155; 84295; 84443; 84450; 84460; 84484; 84520; 85025; 85610; 85651; 85730; 93005; 99283; J0610; J1650; J3475; J3480; J7030; J7050

== ENCOUNTER → 2018-02-27 | Outpatient (CLI) | payer MEDICARE ==
[2018-02-24 11:06] VITALS: BMI 25.7
[~2018-02-27] MED LIST changes: +LOPE2CAP88 PO; +POTA20TA94 PO
[2018-02-27 15:02] LABS: PLATELET COUNT, AUTOMATED 328 K/uL (150-450)
== END ==
LOC: LAB 14:45
PROVIDERS: ATTEND Nurse Practitioner Family
DX: E83.42 Hypomagnesemia (principal); E87.6 Hypokalemia; E03.9 Hypothyroidism, unspecified; D64.9 Anemia, unspecified
CPT/HCPCS: 36415; 82040; 82247; 82310; 82374; 82435; 82565; 82947; 83735; 84075; 84132; 84155; 84295; 84443; 84450; 84460; 84520; 85025

== ENCOUNTER → 2018-02-28 | Outpatient (CLI) | payer MEDICARE ==
[2018-02-24 11:06] VITALS: BMI 25.7
== END ==
LOC: LAB 07:52
PROVIDERS: ATTEND Nurse Practitioner Family
DX: E87.6 Hypokalemia (principal); E83.51 Hypocalcemia; I10 Essential (primary) hypertension; R19.7 Diarrhea, unspecified
CPT/HCPCS: 36415; 82040; 82247; 82310; 82374; 82435; 82565; 82947; 84075; 84132; 84155; 84295; 84450; 84460; 84520

== ENCOUNTER → 2018-03-05 | Outpatient (CLI) | payer MEDICARE ==
[2018-02-24 11:06] VITALS: BMI 25.7
== END ==
LOC: LAB 07:43
PROVIDERS: ATTEND Nurse Practitioner Family
DX: E83.42 Hypomagnesemia (principal); E87.6 Hypokalemia; E83.51 Hypocalcemia
CPT/HCPCS: 36415; 82040; 82247; 82310; 82374; 82435; 82565; 82947; 84075; 84132; 84155; 84295; 84450; 84460; 84520

== ENCOUNTER → 2018-03-12 | Outpatient (CLI) | payer MEDICARE ==
[2018-02-24 11:06] VITALS: BMI 25.7
== END ==
LOC: LAB 08:37
PROVIDERS: ATTEND Nurse Practitioner Family
DX: E87.6 Hypokalemia (principal); E83.51 Hypocalcemia; E83.52 Hypercalcemia
CPT/HCPCS: 36415; 82040; 82247; 82310; 82374; 82435; 82565; 82947; 83735; 84075; 84132; 84155; 84295; 84450; 84460; 84520

== ENCOUNTER → 2018-04-04 | Outpatient (CLI) | payer MEDICARE ==
[2018-02-24 11:06] VITALS: BMI 25.7
== END ==
LOC: LAB 09:04
PROVIDERS: ATTEND Internal Medicine Cardiovascular Disease
DX: E78.00 Pure hypercholesterolemia, unspecified (principal); I25.10 Atherosclerotic heart disease of native coronary artery without angina pectoris
CPT/HCPCS: 36415; 82040; 82247; 82310; 82374; 82435; 82465; 82565; 82947; 83718; 84075; 84132; 84155; 84295; 84450; 84460; 84478; 84520

== ENCOUNTER → 2018-06-14 | Outpatient (CLI) | payer MEDICARE ==
[2018-02-24 11:06] VITALS: BMI 25.7
[~2018-06-14] MED LIST changes: -HYDR-4309 PO; +HYDR-653 PO
[2018-06-14 09:24] LABS: PLATELET COUNT, AUTOMATED 306 K/uL (150-450)
--- NOTE | 2018-06-14 09:34 | EKG ---
[place] [facility] [place] NAME: LEONOR CARLSON : [id number] MR: [id number] V: [id number] EXAM DATE: ORDERING PHYSICIAN: NEELA MEDEL TECHNOLOGIST: Test Reason : pre-op Blood Pressure : / mmHG Vent. Rate : 078 BPM Atrial Rate : 078 BPM P-R Int : 146 ms QRS Dur : 102 ms QT Int : 422 ms P-R-T Axes : 044 -39 063 degrees QTc Int : 481 ms Normal sinus rhythm Left axis deviation R wave progression consistent with an old ant/sep DE vs lead placement Q wave consistent with old inf DE When compared with ECG of 23-FEB-2018 19:50, T wave inversion no longer evident in Lateral leads QT has lengthened Confirmed by AUGUST CARDENAS ([id number]) on 06/14/2018 4:26:19 PM Referred By: Confirmed By:AUGUST CARDENAS
== END ==
LOC: LAB 08:56
PROVIDERS: ATTEND Orthopaedic Surgery
DX: Z01.812 Encounter for preprocedural laboratory examination (principal); Z01.810 Encounter for preprocedural cardiovascular examination; M17.12 Unilateral primary osteoarthritis, left knee; E03.9 Hypothyroidism, unspecified; K21.9 Gastro-esophageal reflux disease without esophagitis; Z87.891 Personal history of nicotine dependence; I50.9 Heart failure, unspecified; I10 Essential (primary) hypertension; I25.2 Old myocardial infarction; Z79.82 Long term (current) use of aspirin; Z99.81 Dependence on supplemental oxygen; Z95.5 Presence of coronary angioplasty implant and graft
CPT/HCPCS: 36415; 81001; 82040; 82247; 82310; 82374; 82435; 82565; 82947; 84075; 84132; 84155; 84295; 84450; 84460; 84520; 85025; 86850; 86900; 86901; 93005

== ENCOUNTER → 2018-06-20 | Outpatient (CLI) | payer MEDICARE ==
[2018-02-24 11:06] VITALS: BMI 25.7
== END ==
LOC: LAB 13:45
PROVIDERS: ATTEND Nurse Practitioner Family
DX: E03.9 Hypothyroidism, unspecified (principal)
CPT/HCPCS: 36415; 82040; 82247; 82310; 82374; 82435; 82565; 82947; 84075; 84132; 84155; 84295; 84443; 84450; 84460; 84520

== ENCOUNTER 2018-07-02 00:58 | Inpatient (IN) | payer MEDICARE ==
[2018-07-01 15:41] LABS: INR 0.96
[~2018-07-02] VITALS: Ht 162.6 cm; Wt 71.2 kg
[2018-07-02] VITALS (14 sets, daily range): BP systolic 73–161; BP diastolic 45–84
[~2018-07-02 00:58] MED LIST changes: +ACET-2708 PO; +OMEP-125 PO
[2018-07-02] MEDS ORDERED: NORMOSOL R SOLN(*) 1000 ML BAG 1,000 ML IV PRN ×2 (08:55→12:00)
[2018-07-02] MEDS ORDERED: CELECOXIB 200 MG CAP PO ONE (08:55)
[2018-07-02] MEDS ORDERED: ceFAZolin(*) 1 GM VIAL 1 GM in NS(*) 0.9% 100 ML ADDVANT BAG 100 ML IVPB ONE (08:55)
[2018-07-02] MEDS ORDERED: ACETAMINOPHEN 500 MG TAB PO ONE (08:55)
[2018-07-02] MEDS ORDERED: PREGABALIN 75 MG CAPSULE PO ONE (08:55)
[2018-07-02] MEDS ORDERED: ROPIVACAINE 0.2% 400 MG/200ML 250 ML CONINFUS ONE (08:55)
[2018-07-02] MEDS ORDERED: cloNIDine EPIDUR INJ 100MCG/ML 40 MCG, ROPIVACAINE 0.5% 20 ML VIAL 25 ML, EPINEPHrine H... INJ ONE (08:55)
[2018-07-02] MEDS ORDERED: LIDOCAINE/SOD BICARB 8.4% SYR ID ONE (08:55)
[2018-07-02] MEDS ORDERED: MIDAZOLAM 2 MG/2 ML VIAL IVP PRN (08:55)
[2018-07-02] MEDS ORDERED: fentaNYL CITR 100 MCG/2 ML AMP ONE ×3 (10:01→11:53)
[2018-07-02] MEDS ORDERED: LACTATED RINGER 3000 ML BAG IR ONE (11:10)
[2018-07-02] MEDS ORDERED: NS 0.9% IRRIGATION 1000ML PLCT IR ONE (11:10)
[2018-07-02] MEDS ORDERED: ONDANSETRON 4 MG/2 ML VIAL ONE (11:14)
[2018-07-02] MEDS ORDERED: ROCURONIUM BROM 10 MG/ML 10 ML ONE (11:14)
[2018-07-02] MEDS ORDERED: PROPOFOL EMUL(*) 10MG/ML 20 ML 20 ML ONE (11:14)
[2018-07-02] MEDS ORDERED: DEXAMETHASONE SOD 4 MG/ML VIAL ONE (11:15)
[2018-07-02] MEDS ORDERED: ROPIVACAINE 0.2% 20 ML VIAL ONE (11:15)
[2018-07-02] MEDS ORDERED: SUGAMMADEX SOD 500 MG/5 ML SDV ONE (11:20)
[2018-07-02] MEDS ORDERED: ALBUTEROL/IPRATROPIUM 3 ML NEB ONE (11:42)
[2018-07-02] MEDS ORDERED: LABETALOL HCL 20 MG/4 ML SYR ONE (11:43)
[2018-07-02] MEDS ORDERED: ALBUTEROL/IPRATROPIUM 3 ML NEB NEB ONE (11:45)
[2018-07-02] MEDS ORDERED: PROMETHAZINE 25 MG/ML 1 ML AMP IVP PRN (12:00)
[2018-07-02] MEDS ORDERED: FLUSH 10 ML SYR IVP PRN (12:00)
[2018-07-02] MEDS ORDERED: ZOLPIDEM TARTRATE 5 MG TAB PO PRN (12:00)
[2018-07-02] MEDS ORDERED: MAGNESIUM HYDROXIDE* 30ML UDCP PO PRN (12:00)
[2018-07-02] MEDS ORDERED: BISACODYL 10 MG SUPP PR PRN (12:00)
[2018-07-02] MEDS ORDERED: NALOXONE HCL 0.4 MG/ML VIAL IVP PRN (12:00)
[2018-07-02] MEDS ORDERED: ONDANSETRON 4 MG/2 ML VIAL IVP PRN (12:00)
[2018-07-02] MEDS ORDERED: MORPHINE SULFATE 30 MG PCA IV PRN (12:00)
--- NOTE | 2018-07-02 12:33 | RADIOLOGY IMAGING REPORT ---
FACILITY: [facility] - [place] PATIENT NAME: Marcia Byrne : 1950 MR: [id number] V: [id number] EXAM DATE: ORDERING PHYSICIAN: NEELA MEDEL TECHNOLOGIST: [place] [facility] [place] Marcia Byrne : 1950 Visit/Account:[id number] Date of Sevice: 07/02/2018 KNEE LIMITED LEFT Indication: POST-OP PLACEMENT Comparison: None. Findings: KNEE LIMITED LEFT Indication: POST-OP PLACEMENT Comparison: There are postoperative changes from a left total knee arthroplasty. The femoral, tibial , and patellar components are normal in position. Impression: Postoperative changes left total knee arthroplasty. Report Dictated By: Kali Emerson at 07/02/2018 12:28 PM Report E-Signed By: Kali Emerson at 07/02/2018 12:29 PM WSN:[id number]
[2018-07-02] MEDS ORDERED: HYDROmorphone HCL 2 MG/ML SDV ONE (13:07)
--- NOTE | 2018-07-02 13:50 | OPERATIVE REPORT 1 ---
EVENT DATE: July 02, 2018 SURGEON: Elías Eng MD ANESTHESIOLOGIST: Robert Martinez M.D. ANESTHESIA: Left indwelling adductor canal block followed by general. We did not use tranexamic acid but we did use 50 cc of our standard Toradol/ ropivacaine cocktail. STAINED GLASS JOINER: ROBINSON Hazel, DRAGLINE ENGINEER PREOPERATIVE DIAGNOSIS Left knee degenerative joint disease. POSTOPERATIVE DIAGNOSIS Left knee degenerative joint disease. PROCEDURE PERFORMED Left total knee arthroplasty. IMPLANTS MicroPort medial pivot shift CS system with a 3 femur, 4 tibia, 10 mm cs insert, 8 x 33 symmetric patella, femur cut 6 degrees valgus, 10 mm. We utilized two packages of [employer] Hardy Blue cement and ZipLine Wound Closure System. SPECIMENS None. COMPLICATIONS None. BLOOD LOSS Less than 200 cc. OPERATION The patient received appropriate preoperative antibiotic, was brought to the OR, where Dr. Martinez performed left adductor canal block followed by general anesthesia. Left thigh tourniquet was placed but was not utilized. Left lower extremity prepped and draped in the usual sterile fashion. Midline incision was made followed by a medial parapatellar arthrotomy. Subperiosteal dissection was carried along the medial tibial plateau to the level of the semimembranosus insertion. Fat pad was excised. Patella was released and everted. Knee was brought up into hyperflexion. ACL and PCL were released subperiosteally by Bovie. The remaining articular cartilage was removed from the distal femoral condyles by sagittal saw. Step cut drill was used to broach the femoral canal. We placed our intramedullary distal femoral alignment guide, setting the cutting block up at 10 mm, 6 degrees valgus and this cut was made with care taken to protect the soft tissues. 3-degree external rotation sizing guide was then positioned, referencing off the anterior phalange, epicondyles and posterior condyles. Femur sized to #3. 3-degree external rotation hole was drilled. Four-in-one cutting block was positioned, followed by Z retractors to protect the soft tissue and cuts made. The tibia was brought anterior in the tibia with appropriate retractors. Step-cut drill was utilized to approach the tibial canal. We placed the intramedullary tibial guide. We referenced to 8 mm off the medial tibial plateau, pinned the block into place after referencing for the rotation and made our tibial cut. The tibia was sized to #4. The stump of the ACL and PCL, medial and lateral meniscus were removed by Bovie. Posterior osteophytes were removed by curved osteotome and capsule elevated with Mckeon elevator. Trial tibial baseplate was then positioned, referencing the previous rotation followed by 10 mm insert and #3 femur. We achieved full extension. Flexion to 130 degrees, stability to varus/valgus stress. The knee was brought in full extension. Patella was sized to 22 mm in depth. This was cut down 8 mm with a guide to accept a 32 x 8 peg hole guide, which was positioned inferomedially. Peg hole was drilled and this accepted our trial. The knee was brought out in flexion. Peg hole was drilled and pegs placed followed by cutting for trochlear chip, which was then placed. Again, we had 0 to 130 degrees of range of motion, stability to varus and valgus stress. Patella tracked well. Anterior drawer was solid at 90 degrees. Femur, patella and tibial insert were removed. Appropriate retractors were placed and we set up our keel guide, which was cut, reamed and punched and the instrumentation was removed. Bone plug placed in the distal femur. Knee brought in full extension. Copiously irrigated by pulse lavage. We mixed two packages of Hardy blue cement. I then injected 10 cc of our cocktail into the posterior capsule followed by placement of the knee in appropriate position. I then started with the tibia, cemented this into placed followed by 10 mm insert and #3 femur. Excess cement was removed. The knee was brought into full extension with axial compression. We cemented the patella. It took 14 minutes for the cement to cure and then we had the aforementioned range of motion and stability. While we were waiting for the cement to cure, we injected the remaining 4 cc of our cocktail in the distal quad mechanism and we copiously irrigated by pulse lavage. We then closed our arthrotomy with #2 Vicryl followed by 2-0 for subcutaneous tissues and ZipLine Wound Closure System for skin. Compressive dressing was applied. Patient was extubated and taken to recovery in stable condition. Hospitalist team to be consulted for medical management and PT for rehab. DAGO
[2018-07-02] MEDS: traMADol 50 MG TAB PO PRN ×2 (14:45→20:53)
--- NOTE | 2018-07-02 16:14 | Hospitalist Consultation ---
History of Present Illness Requesting Physician Dr. Eng Reason for Consult Medical Management Chief Complaint s/p knee replacement History of Present Illness She was admitted s/p knee replacement. She is having some post-operatively bleeding to the surgical site, which has been reinforced by nursing staff. She has a history of UT, CAD, heart failure, and 4 cardiac stents. She did stop her Plavix 5 days prior to surgery, however, she did continue her baby Aspirin, which is likely contributing to the bleeding from the surgical site. Otherwise, she has no complaints. She denies chest pain or SOB. History Problems: (1) History of UT (myocardial infarction) Status: Chronic (2) CAD (coronary artery disease) Status: Chronic (3) Hypothyroidism Status: Chronic (4) Chronic diarrhea Status: Chronic Home Meds Active Scripts Loperamide Hcl (LOPERAMIDE) 2 Mg Capsule, 2 MG PO BID, #60 CAPSULE Prov:ANIYAH OBREGON DO 02/26/18 Carvedilol (CARVEDILOL) 3.125 Mg Tab, 1.5625 MG PO BID, #60 TAB Prov:ANIYAH OBREGON DO 02/26/18 Potassium Chloride (POTASSIUM CHLORIDE) 20 Meq Tab.er.prt, 40 MEQ PO BIDBS, #60 TAB Prov:ANIYAH OBREGON DO 02/26/18 Reported Medications Acetaminophen/Diphenhydramine (ACETAMINOPHEN PM CAPLET) 1 Each Tablet, 1 EACH PO QHS, TAB 06/25/18 Omeprazole (OMEPRAZOLE) 20 Mg Capsule.dr, 1 CAP PO QDAY, CAP 06/25/18 Levothyroxine Sodium (SYNTHROID) 100 Mcg Tablet, 100 MCG PO QDAY 12/30/13 Clopidogrel Bisulfate (CLOPIDOGREL) 75 Mg Tablet, 1 TAB PO QDAY, TAB TAKE ONE TABLET BY MOUTH EVERY DAY 12/30/13 Aspirin (ASPIRIN) 81 Mg Tab.chew, 81 MG PO QDAY, TAB.CHEW TAKE 1 TABLET BY MOUTH EVERY DAY 12/30/13 Paroxetine Hcl (PAROXETINE HCL) 20 Mg Tablet, 20 MG PO DAILY 12/12/13 Atorvastatin Calcium (LIPITOR) 40 Mg Tablet, 20 MG PO QDAY, TAB TAKE ONE TABLET BY MOUTH ONCE A DAY AT BED TIME 12/12/13 Discontinued Reported Medications Nitroglycerin (NITROSTAT) 0.4 Mg Subl, 0.4 MG SL Q5MIN 01/07/14 Lisinopril/Hydrochlorothiazide (LISINOPRIL-HCTZ 20-12.5 MG TAB) 1 Each Tablet, 1 EACH PO BID 12/12/13 Allergies: Coded Allergies: No Known Drug Allergies (Unverified , 02/23/18) Hx Smoking: No (1PPWEEK, FOR 12 YRS, QUIT 12/12/2013) Smoking Status: Former Smoker Exposure to Second Hand Smoke?: Yes Caffeine Intake: Coffee, Soda Caffeine/Cups Per Day: 1 CPD Hx Alcohol Use: No Hx Substance Use Disorder: No Social Drug Use: Never History of IV Drug Use: No Review of Systems All Systems Reviewed/Normal: Yes, Except as Noted Exam Vital Signs Vital Signs Date Time Temp Pulse Resp B/P (MAP) Pulse Ox O2 Delivery O2 Flow Rate FiO2 07/02/18 15:15 66 95/52 (66) 96 Nasal Cannula 3.0 07/02/18 14:20 97.7 14 General Appearance: Alert, Awake, No Acute Distress, Afebrile Neuro: No Gross deficits Extremities: Warm, Perfused, Other (small blood noted to sandra wrap and SCD to left leg) Psych: Alert & Oriented X3, Appropriate Mood & Affect Assessment and Plan Problems: (1) S/P knee replacement Status: Acute Assessment & Plan: Followed by Dr. Eng. (2) CAD (coronary artery disease) Status: Chronic Assessment & Plan: History of 4 cardiac stents. She is on chronic treatment with baby Aspirin (which has been continued through surgery) and Plavix (which was stopped 5 days prior to surgery and needs to be restarted). Will await Dr. Eng's approval to re-start Plavix when bleeding is controlled. (3) History of UT (myocardial infarction) Status: Chronic Assessment & Plan: In 2013. See above. (4) Chronic diarrhea Status: Chronic Assessment & Plan: After colostomy take down. She does require Imodium daily to control diarrhea. She is on chronic treatment with potassium secondary to hypokalemia. She will have CMP and magnesium checked tomorrow morning. (5) Hypokalemia Status: Acute Assessment & Plan: See above. Secondary to chronic diarrhea. (6) CHF (congestive heart failure) Status: Chronic Assessment & Plan: She does not take diuretics anymore, per the patient. Her EF is 45%. Venous Thromboembolism Antithrombotics Is Pt On Any Antithrombotics?: No Problem Qualifiers (1) S/P knee replacement: Laterality: left Qualified Codes: Z96.652 - Presence of left artificial knee joint (2) CHF (congestive heart failure): Heart failure type: diastolic Heart failure chronicity: chronic Qualified Codes: I50.32 - Chronic diastolic (congestive) heart failure LOREN BROWNEP Jul 02, 2018 16:14
[2018-07-02] MEDS: KETOROLAC TROM 10MG TAB PO PRN ×2 (16:42→23:29)
[2018-07-02] MEDS: ACETAMINOPHEN 500 MG TAB PO SCH (16:42)
[2018-07-02] MEDS: ceFAZolin(*) 1 GM VIAL 1 GM in NS(*) 0.9% 100 ML ADDVANT BAG 100 ML IVPB SCH (16:43)
[2018-07-02] MEDS: CARVEDILOL 3.125 MG TAB PO SCH (20:46)
[2018-07-03] VITALS (9 sets, daily range): BP systolic 86–125; BP diastolic 46–71; Ht 162.6 cm; Wt 71.2 kg
[2018-07-03] MEDS: ceFAZolin(*) 1 GM VIAL 1 GM in NS(*) 0.9% 100 ML ADDVANT BAG 100 ML IVPB SCH ×2 (01:43→09:39)
[2018-07-03] MEDS: ACETAMINOPHEN 500 MG TAB PO SCH ×3 (01:43→17:02)
[2018-07-03] MEDS ORDERED: LIDOCAINE 1%MDV(*)200 MG/20 ML 1 ML ONE (01:59)
[2018-07-03] MEDS: traMADol 50 MG TAB PO PRN ×3 (05:45→23:04)
[2018-07-03] MEDS: LEVOTHYROXINE SOD 0.1 MG TAB PO SCH (05:45)
[2018-07-03] MEDS: PANTOPRAZOLE SOD 40 MG TABEC PO SCH (09:39)
[2018-07-03] MEDS: ATORVASTATIN 10 MG TAB PO SCH (09:39)
[2018-07-03] MEDS: PARoxetine HCL 20 MG TAB PO SCH (09:40)
[2018-07-03] MEDS: LOPERAMIDE HCL 2 MG CAP PO SCH (09:40)
[2018-07-03] MEDS: ASPIRIN 81 MG CHEW PO SCH (09:40)
[2018-07-03] MEDS: CARVEDILOL 3.125 MG TAB PO SCH ×2 (09:40→19:49)
[2018-07-03] MEDS: POTASSIUM CHL 20 MEQ TABCR PO SCH (09:40)
[2018-07-03] MEDS: oxyCODONE HCL 5 MG CAP PO PRN ×3 (09:53→19:49)
[2018-07-03 11:19] LABS: PLATELET COUNT, AUTOMATED 245 K/uL (150-450)
--- NOTE | 2018-07-03 14:17 | Hospitalist Progress Note ---
Subjective Progress Notes Subjective She has no complaints this morning. She did have some bleeding from her surgical site last night, which has seemed to reduce with reinforced bandage. Patient Complains of: Cardiovascular: No: Chest Pain Respiratory: No: Shortness of Breath Physical Exam Vital Signs Date Time Temp Pulse Resp B/P (MAP) Pulse Ox O2 Delivery O2 Flow Rate FiO2 07/03/18 11:31 98.2 82 16 111/60 (77) 97 Nasal Cannula 1.0 Intake and Output 07/03/18 07:00 Intake Total 3847 ml Balance 3847 ml Intake Oral 40 ml IV Total 2557 ml Other 1250 ml # Voids 1 # Bowel Movements 1 General Appearance: Alert, Awake, No Acute Distress, Afebrile Neuro: No Gross deficits Cardiovascular: Regular Rate and Rhythm Respiratory: No Respiratory Distress, Clear to Auscultation GI: Soft and Non-Tender Psych: Alert & Oriented X3, Appropriate Mood & Affect Result Diagram: 07/03/18 0000 07/03/18 0517 Assessment and Plan Problems: (1) S/P knee replacement Status: Acute Assessment & Plan: Followed by Dr. Eng. Will continue to follow CBC for blood counts with bleeding. (2) CAD (coronary artery disease) Status: Chronic Assessment & Plan: History of 4 cardiac stents. She is on chronic treatment with baby Aspirin (which has been continued through surgery) and Plavix (which was stopped 5 days prior to surgery and needs to be restarted). Will await Dr. Eng's approval to re-start Plavix when bleeding is controlled, probably tomorrow. (3) History of [place] (myocardial infarction) Status: Chronic Assessment & Plan: In 2013. See above. (4) Chronic diarrhea Status: Chronic Assessment & Plan: After colostomy take down. She does require Imodium daily to control diarrhea. She is on chronic treatment with potassium secondary to hypokalemia. Potassium and Magnesium within normal limits. (5) Hypokalemia Status: Acute Assessment & Plan: See above. Secondary to chronic diarrhea. (6) CHF (congestive heart failure) Status: Chronic Assessment & Plan: She does not take diuretics anymore, per the patient. Her EF is 45%. Exam Sepsis Risk: No Definite Risk Problem Qualifiers (1) S/P knee replacement: Laterality: left Qualified Codes: Z96.652 - Presence of left artificial knee joint (2) CHF (congestive heart failure): Heart failure type: diastolic Heart failure chronicity: chronic Qualified Codes: I50.32 - Chronic diastolic (congestive) heart failure LOREN BROWNE Jul 03, 2018 14:17
[2018-07-03 14:38] LABS: PLATELET COUNT, AUTOMATED 240 K/uL (150-450)
[2018-07-03] MEDS: MORPHINE 4 MG/ML SDV IVP PRN ×2 (17:03→21:17)
[2018-07-04 00:10] VITALS: BP 106/61
[2018-07-04] MEDS: ACETAMINOPHEN 500 MG TAB PO SCH ×2 (00:29→09:39)
[2018-07-04] MEDS: MORPHINE 4 MG/ML SDV IVP PRN (00:29)
[2018-07-04] MEDS: LEVOTHYROXINE SOD 0.1 MG TAB PO SCH (05:32)
[2018-07-04] MEDS: oxyCODONE HCL 5 MG CAP PO PRN (05:32)
[2018-07-04 05:35] VITALS: BP 107/62
[2018-07-04 06:08] LABS: PLATELET COUNT, AUTOMATED 239 K/uL (150-450)
[2018-07-04] MEDS: traMADol 50 MG TAB PO PRN (06:38)
[2018-07-04 08:07] VITALS: BP 102/85
[2018-07-04] MEDS: CARVEDILOL 3.125 MG TAB PO SCH ×2 (09:00→09:39)
[2018-07-04] MEDS ORDERED: HYDR2TAB74 PO (09:06)
[2018-07-04] MEDS ORDERED: HYDROmorphone HCL 2 MG TAB PO PRN (09:20)
[2018-07-04] MEDS: LOPERAMIDE HCL 2 MG CAP PO SCH (09:38)
[2018-07-04] MEDS: ATORVASTATIN 10 MG TAB PO SCH (09:38)
[2018-07-04] MEDS: POTASSIUM CHL 20 MEQ TABCR PO SCH (09:38)
[2018-07-04] MEDS: PARoxetine HCL 20 MG TAB PO SCH (09:39)
[2018-07-04] MEDS: PANTOPRAZOLE SOD 40 MG TABEC PO SCH (09:39)
[2018-07-04] MEDS: ASPIRIN 81 MG CHEW PO SCH (09:39)
[2018-07-04 10:25] VITALS: BP 125/75
--- NOTE | 2018-07-04 11:49 | Hospitalist Progress Note ---
Subjective Progress Notes Subjective She has some complaints of pain to the surgical site. She had no acute events overnight. Patient Complains of: Cardiovascular: No: Chest Pain Respiratory: No: Shortness of Breath Physical Exam Vital Signs Date Time Temp Pulse Resp B/P (MAP) Pulse Ox O2 Delivery O2 Flow Rate FiO2 07/04/18 11:14 82 07/04/18 10:25 97.6 76 16 125/75 (92) Nasal Cannula 1.5 Intake and Output 07/04/18 00:00 Intake Total 1440 ml Balance 1440 ml Intake Oral 1340 ml IV Total 100 ml # Voids 4 # Bowel Movements 4 General Appearance: Alert, Awake, No Acute Distress, Afebrile Neuro: No Gross deficits Cardiovascular: Regular Rate and Rhythm Respiratory: No Respiratory Distress, Clear to Auscultation GI: Soft and Non-Tender Extremities: Warm, Perfused; No Edema Psych: Alert & Oriented X3, Appropriate Mood & Affect Result Diagram: 07/04/1851807/03/18 05 Assessment and Plan Problems: (1) S/P knee replacement Status: Acute Assessment & Plan: Followed by Dr. Eng. Will continue to follow CBC for blood counts with bleeding. (2) CAD (coronary artery disease) Status: Chronic Assessment & Plan: History of 4 cardiac stents. She is on chronic treatment with baby Aspirin (which has been continued through surgery) and Plavix (which was stopped 5 days prior to surgery). She will re-start Plavix this evening per her usual schedule. (3) History of [place] (myocardial infarction) Status: Chronic Assessment & Plan: In 2013. See above. (4) Chronic diarrhea Status: Chronic Assessment & Plan: After colostomy take down. She does require Imodium daily to control diarrhea. She is on chronic treatment with potassium secondary to hypokalemia. Potassium and Magnesium within normal limits. (5) Hypokalemia Status: Acute Assessment & Plan: See above. Secondary to chronic diarrhea. (6) CHF (congestive heart failure) Status: Chronic Assessment & Plan: She does not take diuretics anymore, per the patient. Her EF is 45%. Exam Sepsis Risk: No Definite Risk Problem Qualifiers (1) S/P knee replacement: Laterality: left Qualified Codes: Z96.652 - Presence of left artificial knee joint (2) CHF (congestive heart failure): Heart failure type: diastolic Heart failure chronicity: chronic Qualified Codes: I50.32 - Chronic diastolic (congestive) heart failure LOREN BROWNEP Jul 04, 2018 11:49
== END 2018-07-04 12:50 | disposition home or self-care (01) | DRG 470 ==
LOC: OR 00:58 → INTOOBSV 14:20 → MED 14:20 → OBSVTOIN 07-03 → INTOOBSV 07-03
PROVIDERS: ADMIT Orthopaedic Surgery; ATTEND Orthopaedic Surgery
PROC: 0SRD0J9 Replacement of Left Knee Joint with Synthetic Substitute, Cemented, Open Approach (ICD-10-PCS; principal; 2018-07-03)
DX: M17.12 Unilateral primary osteoarthritis, left knee (principal); I50.32 Chronic diastolic (congestive) heart failure; E87.6 Hypokalemia; I25.10 Atherosclerotic heart disease of native coronary artery without angina pectoris; F32.9 Major depressive disorder, single episode, unspecified; I25.2 Old myocardial infarction; K52.9 Noninfective gastroenteritis and colitis, unspecified; E03.9 Hypothyroidism, unspecified; Z95.5 Presence of coronary angioplasty implant and graft; Z88.5 Allergy status to narcotic agent
CPT/HCPCS: 36415; 76942; 82040; 82247; 82310; 82374; 82435; 82565; 82947; 83735; 84075; 84132; 84155; 84295; 84450; 84460; 84520; 85025; 85610; 86850; 86900; 86901; 94640; 97161; C1713; C1776; G0378; J0171; J0690; J0735; J1100; J1170; J1885; J2001; J2250; J2270; J2405; J2704; J2795; J3010; J3490; J7050

== ENCOUNTER → 2018-07-09 | Outpatient (CLI) | payer MEDICARE ==
[2018-07-03 12:23] VITALS: BMI 26.9
[~2018-07-09] MED LIST changes: +HYDR2TAB74 PO
== END ==
LOC: LAB 10:02
PROVIDERS: ATTEND Nurse Practitioner Family
DX: E78.5 Hyperlipidemia, unspecified (principal)
CPT/HCPCS: 82465; 83718; 84478

== ENCOUNTER → 2018-07-09 | Outpatient (CLI) | payer MEDICARE ==
[2018-07-03 12:23] VITALS: BMI 26.9
== END ==
LOC: LAB 10:05
PROVIDERS: ATTEND Internal Medicine Cardiovascular Disease
DX: I25.10 Atherosclerotic heart disease of native coronary artery without angina pectoris (principal); I10 Essential (primary) hypertension
CPT/HCPCS: 36415; 82040; 82247; 82310; 82374; 82435; 82565; 82947; 84075; 84132; 84155; 84295; 84450; 84460; 84520

== ENCOUNTER → 2018-07-27 | Outpatient (CLI) | payer MEDICARE ==
[2018-07-03 12:23] VITALS: BMI 26.9
== END ==
LOC: LAB 10:00
PROVIDERS: ATTEND Internal Medicine Cardiovascular Disease
DX: E87.6 Hypokalemia (principal)
CPT/HCPCS: 36415; 82310; 82374; 82435; 82565; 82947; 84132; 84295; 84520

== ENCOUNTER → 2018-08-31 | Outpatient (CLI) | payer MEDICARE ==
[2018-07-03 12:23] VITALS: BMI 26.9
== END ==
LOC: LAB 09:09
PROVIDERS: ATTEND Nurse Practitioner Family
DX: E03.9 Hypothyroidism, unspecified (principal); E78.5 Hyperlipidemia, unspecified
CPT/HCPCS: 36415; 82040; 82247; 82310; 82374; 82435; 82465; 82565; 82947; 83718; 84075; 84132; 84155; 84295; 84443; 84450; 84460; 84478; 84520